=== PATIENT | male | born 1980 | race Caucasian/White ===

== ENCOUNTER 2018-06-08 09:03 | Emergency (ER) | payer OTHER ==
[~2018-06-08] VITALS: Ht 193 cm; Wt 98.0 kg
[~2018-06-08 09:03] MED LIST: AMOXICILLIN/CL875 MG OR; AMOXICILLIN/CL875 MG PO; CIPROFLOXACN500 MG PO; FLEXERIL OR; FLEXERIL10 MG PO; FLONASE NASAL50 MCG; LORTAB5 PO; NAPROSYN500 MG PO; NO MEDS; POLYTRIM OU; ZOFRAN ODT4 MG PO
[2018-06-08] MEDS ORDERED: VOLTAREN1%GEL TOP ×2 (10:14→11:33)
[2018-06-08] MEDS ORDERED: PREDNISONE50 MG PO (11:33)
[2018-06-08 11:56] VITALS: BP 134/90
== END 2018-06-08 12:10 | disposition home or self-care (01) | DRG 552 ==
LOC: ED 09:03
DX: M54.5 Low back pain (principal); F17.210 Nicotine dependence, cigarettes, uncomplicated

== ENCOUNTER 2018-06-24 07:33 | Day surgery (SDC) | payer OTHER ==
[~2018-06-24] VITALS: Ht 190.5 cm; Wt 99.8 kg
[~2018-06-24 07:33] MED LIST changes: +NORCO1 TA2 PO; +PREDNISONE50 MG PO; +QC IBUPROFEN200 M1 PO; +TYLENOL 500MG TAB PO; +VOLTAREN1%GEL TOP
[2018-06-24 09:25] VITALS: BP 124/77
[2018-06-30] MEDS ORDERED: NORCO1 TA2 PO (08:58)
== END 2018-06-24 09:37 | disposition home or self-care (01) | DRG 552 ==
LOC: ORM 07:33
PROVIDERS: ATTEND Anesthesiology Pain Medicine
PROC: 3E0U33Z Introduction of Anti-inflammatory into Joints, Percutaneous Approach (ICD-10-PCS; principal; 2018-06-24)
PROC: 3E0U3BZ Introduction of Anesthetic Agent into Joints, Percutaneous Approach (ICD-10-PCS; 2018-06-24)
DX: M46.1 Sacroiliitis, not elsewhere classified (principal)

== ENCOUNTER → 2018-06-30 | Outpatient (REF) | payer OTHER ==
[~2018-06-30] MED LIST changes: +EQ OMEPRAZOLE20 MG
[2018-06-30 08:41] VITALS: BP 145/109
== END | disposition home or self-care (01) | DRG 951 ==
LOC: PAIN/MGT 08:30
PROVIDERS: ATTEND Anesthesiology Pain Medicine
DX: Z09 Encounter for follow-up examination after completed treatment for conditions other than malignant neoplasm (principal)

== ENCOUNTER → 2018-07-09 | Outpatient (REF) | payer OTHER | END | disposition home or self-care (01) | DRG 552 | LOC: MRI 07-03 14:00 | PROVIDERS: ATTEND Anesthesiology Pain Medicine | DX: M51.36 Other intervertebral disc degeneration, lumbar region (principal) ==